=== PATIENT | female | born 1975 | race Caucasian/White ===

== ENCOUNTER → 2017-07-30 | Emergency (ER) | payer OTHER ==
[~2017-07-30] VITALS: Ht 162.6 cm; Wt 75.3 kg
== END | disposition home or self-care (01) ==
LOC: ER 16:26
DX: M25.561 Pain in right knee (principal); G89.11 Acute pain due to trauma; S80.01XS Contusion of right knee, sequela; W22.8XXS Striking against or struck by other objects, sequela

== ENCOUNTER 2018-07-10 14:21 | Emergency (ER) | payer OTHER ==
[~2018-07-10] VITALS: Ht 162.6 cm; Wt 77.6 kg
== END 2018-07-10 17:55 | disposition home or self-care (01) ==
LOC: ER 14:21
DX: B34.9 Viral infection, unspecified (principal)